=== PATIENT | female | born 1950 | race African-American/Black ===

== ENCOUNTER 2017-02-23 06:50 | Day surgery (SDC) | payer OTHER ==
[~2017-02-23] VITALS: Ht 157.5 cm; Wt 89.2 kg
[~2017-02-23 06:50] MED LIST: AMLO5 PO; ASPI81TA11 PO; CARV3.12 PO; CITA10TA4 PO; CLON.1 PO; COZA100T PO; HYDR12.56 PO; ZOCO40TA PO
[2017-02-23] MEDS ORDERED: NS 1000P @30 MLS/HR (KVO) IV SCH (07:30)
[2017-02-23] MEDS ORDERED: diphenhydrAMINE HCL 50 MG CAP PO SCH (07:30)
[2017-02-23 07:31] VITALS: BP 169/88; PULSE 59; RESP 18; TEMP 98.6; O2SAT 98
[2017-02-23] MEDS ORDERED: GABA100C4 PO (07:33)
[2017-02-23] MEDS ORDERED: LOSA100T PO (07:33)
[2017-02-23] MEDS ORDERED: ASPI-147 PO (07:33)
[2017-02-23] MEDS ORDERED: NITR0.4S SL (07:33)
[2017-02-23] MEDS ORDERED: CLON0.1T PO (07:33)
[2017-02-23] MEDS ORDERED: PRAV10TA PO (07:33)
[2017-02-23] MEDS ORDERED: PLAV75TA29 PO (07:33)
[2017-02-23] MEDS ORDERED: ISOS30TA3 PO (07:33)
[2017-02-23] MEDS ORDERED: CITA10TA4 PO (07:33)
[2017-02-23] MEDS ORDERED: CARV12.52 PO (07:33)
[2017-02-23 07:39] LABS: AUTOMATED NEUTROPHIL # 2.6 TH/MM3 (1.8-7.7); BASOPHIL % 0.7 % (0.0-2.0); EOSINOPHIL # 0.6 TH/MM3 (0-0.4); EOSINOPHIL % 8.6 % (0.0-4.0); HEMATOCRIT 34.9 % (35.0-46.0); HEMO FLAGS DIFF FINAL; LYMPH % 42.8 % (9.0-44.0); LYMPHOCYTE # 2.8 TH/MM3 (1.0-4.8); MEAN CELL VOLUME 90.8 FL (80.0-100.0); MEAN CORPUSCULAR HEMOGLOBIN 31.1 PG (27.0-34.0); MEAN CORPUSCULAR HGB CONC 34.2 % (32.0-36.0); MONO % 8.3 % (0.0-8.0); NEUT % 39.6 % (16.0-70.0); PLATELET COUNT 265 TH/MM3 (150-450); RED BLOOD COUNT 3.85 MIL/MM3 (4.00-5.30); WHITE BLOOD COUNT 6.6 TH/MM3 (4.0-11.0)
[2017-02-23 07:45] LABS: APTT (PATIENT) 26.3 SEC (24.3-30.1); INTERNATIONAL NORMALIZED RATIO 0.9 RATIO; PROTHROMBIN TIME - PATIENT 10.3 SEC (9.8-11.6)
[2017-02-23 07:49] LABS: BICARBONATE 29.1 MEQ/L (21.0-32.0)
[2017-02-23] MEDS ORDERED: HEPARIN-NS/PF INJ 500 ML ONE ×2 (08:27→09:27)
[2017-02-23] MEDS ORDERED: MIDAZOLAM HCL 2 MG/2 ML VIAL ONE (08:27)
[2017-02-23] MEDS ORDERED: HEPARIN SODIUM - IV 10,000 UNITS/10 ML VIAL ONE (09:20)
[2017-02-23] MEDS ORDERED: CLOPIDOGREL 300 MG TAB ONE (09:51)
--- NOTE | 2017-02-23 10:09 | CATHPROC ---
[employer] HIS Report Study Information Study Number Admission Scheduled Start Study Start [id number] Feb 23 2017 6:50AM 02/23/2017 Feb 23 2017 8:21AM [place] Service Cardiac Catheterization Admit Source Facility Department Other [facility] - Canal [facility] Physician and Clinical Staff Initial MD Beltran, [place] [employer]er Taylor Medrano,AGNIESZKA Recorder Jenna Hill,RT(R) (BS) Scrub Sarah ParhamRT(R) Procedures Performed Procedure Location (Site) Vessel Name Coronary Angiograms LCA Left Coronary Coronary Angiograms RCA Right Coronary Drug Eluting Inflatio CIRC Prox CIRC L Heart Cath LV Gram-hand inj. LV LV Ventricle PTCA CIRC Prox CIRC PTCA ADD ON'S Wire insertion Fem Art (right) Femoral Art Equipment Time Welfare Worker Description Size Mfg Part Number Used/Scraped PERCLOSE, PRO GLIDE CLOSER 09:56 [employer] FR 6 11531 *[id number] Used DEVICE [id number] 09:30 [employer] WIRE, IZZY FIELDER XT 190CM 180CM Used *[id number] TRANSDUCER, TRUWAVE [id number] 08:22 NEWBY MEDRANO * Used W/STOCKCOCK *[id number] WIRE, CHOICE PT EX. SUPPORT [id number] 09:27 [employer] 180CM Used 182CM *[id number]- INTRODUCER SET, 08:22 [employer]. FR 5 SC-NT-U-SST Used MICROPUNCTURE, STIFFENED *[id number] [id number] *[id number] 534-521T *[id number] [id number] *[id number] 08:22 Ready Solar INDUSTRIES PACK, CCL CUSTOM * Used *[id number] 09:24 MEDTRONIC BALLOON, 2.5 X 6MM EUPHORA 6MM Used *[id number] 09:43 MEDTRONIC BALLOON, 3.0 X 12MM EUPHORA 12MM Used *[id number] BALLOON, 3.0 X 8MM NC [id number] 09:51 MEDTRONIC 8MM Used EUPHORA *[id number] STENT, 2.75 12 RESOLUTE [id number] 09:49 MEDTRONIC 2.75 12 Used INTEGRITY RX *[id number] STENT, 2.75 14 RESOLUTE [id number] 09:41 MEDTRONIC 2.75 14 Used INTEGRITY RX *[id number] STENT, 2.75 18 RESOLUTE [id number] 09:39 MEDTRONIC 2.75 18 Used INTEGRITY RX *[id number] 09:22 MEDTRONIC/AVE EBU 3.5 Z2 GUIDE CATHETER FR 6 Used *[id number] 09:20 [employer] MEDICAL 30 EVERETT INDEFLATOR Used *[id number] 09:22 [employer] MEDICAL SHEATH, FR6.5 PRELUDE 11CM FR 6.5 038ACT Used *[id number] 08:22 [employer] MEDICAL WIRE, 3MMJ .035 180CM 180CM Used *[id number] 08:22 NAMIC MANIFOLD, 4 PORT * Used *[id number] 08:22 NYCOMED OMNIPAQUE, 350 MG, 150ML 150ML [id number] Used [id number] 08:22 [employer] MEDICAL BLANKET,WARM AIR CCL * Used *[id number] 08:22 TERUMVisiQuate MEDICAL SHEATH, FR5 TERUMO (10CM) FR 5 Used *[id number] WIRE, RUNTHROUGH NS FLOPPY [id number] 09:21 TERUMO MEDICAL 180CM Used .014 180CM *[id number] Equipment Model, Serial, Lot Number and Expiration Data Description Model Number Serial Number Lot Number Expiration Date SHEATH, FR6.5 PRELUDE 11CM [id number] 12-23-2019 STENT, 2.75 12 RESOLUTE [id number] 12-01-2018 INTEGRITY RX WIRE, CHOICE PT EX. SUPPORT [id number] 09-01-2018 182CM History: Current Medications Medication Dosage/Unit Route Frequency Last Date/Time Taken Statins (any) Beta Anne NTG Patch ASA PLAVIX EFFIENT History: Allergies Allergy Reaction Tramadol Hydroxyzine History: Risk Factors Family History of Hypertension Dyslipidemia Previous IN Previous Heart Failure Premature CAD Yes Yes No Yes No Prior Valve Prior PCI Prior PCIDate Prior CABG Surgery No Yes 05/25/2014 No Cerebrovascular Peripheral Artery Chronic Lung On Dialysis Diabetes Disease Disease Disease No No No No No History: Symptoms/Diagnosis Selection Items Chest pain History: Stress Tests Stress or Imaging Studies Performed Yes Standard Exercise Stress Test No Stress Echo No Stress Test SPECT Stress Test SPECT Result Stress Test SPECT Ischemia Risk/Extent Yes Positive Intermediate Stress Test CMR No Cardiac CTA Coronary Calcium Score No No History: Other Current Smoker No Labs Hgb (g/dl) Hct (%) WBC (l/cumm) Platelets (thousands) 11.60-17.00 35.00-51.00 4.00-11.00 150.00-450.00 12.0 34.9 6.6 265 Glucose (mg/dl) BUN (mg/dl) Creatinine (mg/dl) BUN:Creatinine (1:x) 74.00-106.00 7.00-18.00 0.50-1.30 10.00-20.00 94 16 1.1 14.5 Na (meq/l) K (meq/l) 136.00-145.00 3.50-5.10 141 4 INR (PTT:PT) 0.90-1.10 0.9 CPK-MB (ng/ML) 0.50-3.60 Not Drawn Medication Medication Total Dose (Bolus/Oral) Medication Total Dosage/Unit 1% XYLOCAINE 20 mL FENTANYL 50 mcg HEPARIN 5000 units PLAVIX 600 mg VERSED 2 mg Medications (Bolus/Oral) Medication Time Given Dosage/Unit Administered By Reason 1% XYLOCAINE 02/23/2017 9:11:03 AM 20 mL Trevino-Humberto Jasper 20 mL 1% XYLOCAINE given in lab by Jasper Beltran in Right Groin via Subcutaneous. FENTANYL 02/23/2017 9:11:21 AM 50 mcg Taylor Medrano 50 mcg FENTANYL given in lab by Taylor Medrano RN in Left Antecubital via Peripheral IV. VERSED 02/23/2017 9:12:12 AM 2 mg Taylor Medrano 2 mg VERSED given in lab by Taylor Medrano RN in Left Antecubital via Peripheral IV. HEPARIN 02/23/2017 9:21:42 AM 5000 units Taylor Medrano 5000 units HEPARIN given in lab by Taylor Medrano RN in Left Antecubital via Peripheral IV. PLAVIX 02/23/2017 9:59:26 AM 600 mg Taylor Medrano 600 mg PLAVIX given in lab by Taylor Medrano RN via Oral. Medication (Drip) Medication Time Given Dosage/Unit Concentration/Unit Diluent (ml) Solution IV Solutions 02/23/2017 8:22:20 AM 0 mL (IV) 500 NaCl .9 IV Solutions given in lab by Medrano, Taylor, RN in Left Antecubital via Peripheral IV. Pump/Drip F low = 20 ml/hr using NaCl .9. Initial Case Assessment Cardiovascular HR Rhythm NIBP Chest Pain 74 reg 165/86 0 Edema Present Skin color Skin None Normal Warm Dry Circulatory - Right Pulses Dorsalis Pedis Femoral 1 2 Scale (0,1,2,3,4,d) Circulatory - Left Pulses Dorsalis Pedis Femoral 1 2 Scale (0,1,2,3,4,d) Circulatory - Lower Extremities Color Lower Right Color Lower Left Normal Normal Neurological State Oriented to time-place- Alert Moves all extremities person Respiration - General Respiration Rate SpO2 (%) (B/min) 16 98 Chronological Log Time Study Chronological Log 8:21:58 Patient arrived via Bed. 8:21:59 Patient Name, D.O.B, / Armband Verified By R.N. 8:22:00 Consent signed by the physician and the patient and verified by the Canal [facility] staff. 8:22:01 Pre-op and post- op instructions given; patient acknowledges understanding of instructions . 8:22:03 Verbal Stimulation=2 Physical Stimulation=2 Airway=2 Respiration=2 TOTAL=8. (0=absent, 1=l imited, 2=present) 8:22:05 Presedation assessment performed by Canal Boat Operator RN. 8:22:09 Patient has been NPO for More than 6Hrs. 8:22:11 Skin Breakdown none per pt 8:22:14 Patient Warmer Placed on the Table. 8:22:17 Jadyn Prominences Protected 8:22:18 A # 20 IV was noted in the Antecubital (left). Grade = 0 IV Solutions given in lab by Taylor Medrano, RN in Left Antecubital via Peripheral IV. Pump/D rip Flow = 20 ml/hr 8:22:20 using NaCl .9. 8:22:20 History and physical on the chart or being dictated. Assessment: Initial Case, HR=74 BPM, Rhythm=reg, JMDZ=132/86 mmhg, Chest Pain=0, Edema=None, Col or=Normal, Skin = Warm, Dry Right Pulses: Peterson Ped=1, Femoral=2 Left Pulses: Peterson Ped=1, Femoral=2 8:22:23 Lower Right Extremities: Color=Normal Lower Left Extremities: Color=Normal Neurological: State=Alert, Ox3, BUNCH Respiration: Resp=16 B/min, SpO2=98 % Vitals capture started with the following parameters, Patient=Adult, Interval=5 min, Initial Pre emanm=665 mmHg, 8:25:14 Deflation Rate=5 mmHg 8:26:38 HR=64 bpm, WKZF=974/86 mmhg, SpO2=99.0 %, Resp=10 B/min, Pain=0, Risa=10, Vincent=2 8:31:00 HR=58 bpm, RBLU=223/89 mmhg, SpO2=99.0 %, Resp=13 B/min, Pain=0, Risa=10, Vincent=2 8:32:30 Reference ECG taken 8:36:01 HR=58 bpm, XACW=435/90 mmhg, SpO2=98.0 %, Resp=14 B/min, Pain=0, Risa=10, Vincent=2 8:40:34 Bilateral groins prepped with 2% chlorhexidine, and with a 3 min. waiting time. 8:41:02 HR=62 bpm, ZGDD=020/127 mmhg, SpO2=98.0 %, Resp=12 B/min, Pain=0, Risa=10, Vincent=2 8:44:28 MD arrived. 8:46:18 Pressure channel 1 zeroed. 8:46:44 HR=65 bpm, YQQH=858/100 mmhg, SpO2=99.0 %, Resp=15 B/min, Pain=0, Risa=10, Vincent=2 8:51:04 HR=66 bpm, OAKW=432/91 mmhg, SpO2=97.0 %, Resp=15 B/min, Pain=0, Risa=10, Vincent=2 8:56:05 HR=61 bpm, ENMZ=577/92 mmhg, SpO2=97.0 %, Resp=16 B/min, Pain=0, Risa=10, Vincent=2 9:01:04 HR=59 bpm, JALU=325/83 mmhg, SpO2=98.0 %, Resp=17 B/min, Pain=0, Risa=10, Vincent=2 9:06:53 HR=58 bpm, SHIY=625/73 mmhg, SpO2=97.0 %, Resp=15 B/min, Pain=0, Risa=10, Vincent=2 Time Out. Correct patient, correct procedure,correct physician, power injector not loaded with c ontrast with surgical 9:: team present. Time Out Concurred by , individual staff in procedure 9::59 Case Start 9:11:03 20 mL 1% XYLOCAINE given in lab by Jasper Beltran in Right Groin via Subcutaneous. 9:11:21 50 mcg FENTANYL given in lab by Taylor Medrano, RN in Left Antecubital via Peripheral IV. 9:11:37 HR=62 bpm, YPNN=290/90 mmhg, SpO2=97.0 %, Resp=18 B/min, Pain=0, Risa=10, Vincent=2 9::49 Access site was Right Femoral Artery. 9:12:12 2 mg VERSED given in lab by Taylor Medrano, AGNIESZKA in Left Antecubital via Peripheral IV. A INTRODUCER SET, MICROPUNCTURE, STIFFENED FR 5 was advanced into the Fem Art (right) using the ::49 Percutaneous technique. A SHEATH, FR5 TERUMO (10CM) FR 5 was exchanged in the Fem Art (right). This was necessary in ord er to ::59 accomodate a larger catheter. Recorded Pressure: Ao, HR=70, Condition=Condition 1 9:14:02 (Aorta) Ao 150/82/106 9:14:15 An injection in the Fem Art (right) was made through the SHEATH, FR5 TERUMO (10CM) FR 5. A JR 4.0 INFINITI CATHETER FR 5 was advanced over a wire. OMNIPAQUE, 350 MG, 150ML 150ML was use d for 9:14:25 injections. Recorded Pressure: LV, HR=63, Condition=Condition 1 9:15:08 (Left Ventricle) LV 141/6/10 9:15:43 The LV was manually injected with 8 cc's and visualized. OMNIPAQUE, 350 MG, 150ML 150ML used . Recorded Pressure: LV, Ao, HR=62, Condition=Condition 1 9:15:53 (Left Ventricle) LV 132/3/12, (Aorta) Ao 123/74/94 9:16:12 HR=61 bpm, CFMF=407/74 mmhg, SpO2=96.0 %, Resp=12 B/min, Pain=0, Risa=10, Vincent=2 9:16:12 The RCA was injected and visualized at various angles. OMNIPAQUE, 350 MG, 150ML 150ML used. 9:16:50 Catheter was removed A JL 4.0 INFINITI CATHETER FR 5 was advanced over a wire. OMNIPAQUE, 350 MG, 150ML 150ML was use d for 9:16:52 injections. 9:17:48 The LCA was injected and visualized at various angles. OMNIPAQUE, 350 MG, 150ML 150ML used. 9:18:50 Catheter was removed 9:19:06 OMNIPAQUE, 350 MG, 150ML 150ML and 30 EVERETT INDEFLATOR added. A SHEATH, FR6.5 HEATHER FR 6.5 was exchanged in the Fem Art (right). This was necessary in order to accomodate a 9:20:19 larger catheter. 9:20:56 HR=65 bpm, NBAJ=756/77 mmhg, SpO2=99.0 %, Resp=10 B/min, Pain=0, Risa=10, Vincent=2 9:21:42 5000 units HEPARIN given in lab by Taylor Medrano, RN in Left Antecubital via Peripheral IV. A EBU 3.5 Z2 GUIDE CATHETER FR 6 was advanced over a wire. OMNIPAQUE, 350 MG, 150ML 150ML was us ed for 9:21:53 injections. 9:23:05 A WIRE, RUNTHROUGH NS FLOPPY .014 180CM 180CM was inserted via Fem Art (right). 9:25:55 HR=66 bpm, NUPM=979/70 mmhg, GrZ4=582.0 %, Resp=12 B/min, Pain=0, Risa=10, Vincent=2 9:26:51 Wire removed 9:27:30 A WIRE, CHOICE PT EX. SUPPORT 182CM 180CM was inserted via Fem Art (right). 9:31:01 HR=64 bpm, QEMN=763/61 mmhg, SmI0=930.0 %, Resp=12 B/min, Pain=0, Risa=10, Vincent=2 9:31:01 Wire removed 9:31:08 A WIRE, MONICARelify ER XT 190CM 180CM was inserted via Fem Art (right). 9:35:39 Activated Clotting Time Drawn A BALLOON, 2.5 X 6MM EUPHORA 6MM was inserted over WIRE, ASAHI FIELDER XT 190CM 180CM via the Fe m Art 9:35:43 (right). 9:35:58 HR=65 bpm, GASM=734/71 mmhg, BvQ8=239.0 %, Resp=12 B/min, Pain=0, Risa=10, Vincent=2 A BALLOON, 2.5 X 6MM EUPHORA 6MM over a WIRE, ASAHI FIELDER XT 190CM 180CM in the CIRC Prox was inflated 9:36:49 using a 30 EVERETT INDEFLATOR at 8 everett for 10 sec. 9:37:38 Balloon Removed A STENT, 2.75 18 RESOLUTE INTEGRITY RX 2.75 18 was advanced through a EBU 3.5 Z2 GUIDE CATHETER FR 6 over 9:39:51 a WIRE, ASAHI FIELDER XT 190CM 180CM. 9:40:28 Stent not deployed. Stent removed and intact. 9:40:59 HR=66 bpm, LIIM=822/69 mmhg, VvX9=706.0 %, Resp=12 B/min, Pain=0, Risa=10, Vincent=2 A STENT, 2.75 14 RESOLUTE INTEGRITY RX 2.75 14 was advanced through a EBU 3.5 Z2 GUIDE CATHETER FR 6 over 9:41:41 a WIRE, ASAHI FIELDER XT 190CM 180CM. 9:42:28 Stent not deployed. Stent removed and intact. 9:42:57 ACT (Normal Range 90-180) = 356 A BALLOON, 3.0 X 12MM EUPHORA 12MM was inserted over WIRE, ASAHI FIELDER XT 190CM 180CM via the Fem Art 9:43:28 (right). A BALLOON, 3.0 X 12MM EUPHORA 12MM over a WIRE, ASAHI FIELDER XT 190CM 180CM in the CIRC Prox wa s 9:43:45 inflated using a 30 EVERETT INDEFLATOR at 8 everett for 11 sec. A BALLOON, 3.0 X 12MM EUPHORA 12MM over a WIRE, ASAHI FIELDER XT 190CM 180CM in the CIRC Prox wa s 9:44:15 inflated using a 30 EVERETT INDEFLATOR at 10 everett for 13 sec. 9:45:00 Balloon Removed A STENT, 2.75 14 RESOLUTE INTEGRITY RX 2.75 14 was advanced through a EBU 3.5 Z2 GUIDE CATHETER FR 6 over 9:45:23 a WIRE, ASAHI FIELDER XT 190CM 180CM. 9:46:34 HR=74 bpm, UBZP=025/85 mmhg, FkK7=488.0 %, Resp=15 B/min, Pain=0, Risa=10, Vincent=2 9:47:11 Stent not deployed. Stent removed and intact. A STENT, 2.75 12 RESOLUTE INTEGRITY RX 2.75 12 was advanced through a EBU 3.5 Z2 GUIDE CATHETE R FR 6 over 9:48:16 a WIRE, ASAHI FIELDER XT 190CM 180CM. A STENT, 2.75 12 RESOLUTE INTEGRITY RX 2.75 12 was deployed using a 30 EVERETT INDEFLATOR at 16 at [facility]ospheres 9:49:29 for 14 seconds in the CIRC Prox. 9:49:46 Delivery device removed A BALLOON, 3.0 X 8MM NC EUPHORA 8MM was inserted over WIRE, ASAHI FIELDER XT 190CM 180CM via t he Fem Art 9:50:39 (right). 9:51:03 HR=74 bpm, GETX=375/91 mmhg, SpO2=99.0 %, Resp=13 B/min, Pain=0, Risa=10, Vincent=2 A BALLOON, 3.0 X 8MM NC EUPHORA 8MM over a WIRE, ASAHI FIELDER XT 190CM 180CM in the CIRC Prox was 9:51:32 inflated using a 30 EVERETT INDEFLATOR at 12 everett for 19 sec. 9:52:44 Balloon Removed. 9:52:50 Catheter was removed 9:52:54 Wire removed 9:55:05 PERCLOSE, PRO GLIDE CLOSER DEVICE FR 6 placement in the Fem Art (right) 9:55:59 Case End 9:56:04 HR=76 bpm, MYRL=557/93 mmhg, EzN5=396.0 %, Resp=17 B/min, Pain=0, Risa=10, Vincent=2 9:57:23 Catheter(s) removed without difficulty 9:57:30 No case complications noted. 9:57:32 Cine recording checked. 9:57:35 Implantable Device card placed in patient's chart. 9:57:40 Contrast Scanned 9:57:42 A Left Heart Cath was performed. 9:57:54 DOCU called. Spoke to Katiana. 9:59:26 600 mg PLAVIX given in lab by Taylor Medrano RN via Oral. 10:01:05 HR=67 bpm, ZCVN=155/92 mmhg, SpO2=97.0 %, Resp=15 B/min, Pain=0, Risa=10, Vincent=2 10:01:44 Sterile dressing applied to site 10:05:15 Patient moved to stretcher End Study - Contrast Media Used In Study Contrast Total Opened (mL) Total Used (mL) Total Wasted (mL) Omnipaque 75 75 0 End Study - Maximum Contrast Load Max Contrast Load (mL) 405.4 End Study - Radiation Exposure Fluoro Time (minutes) 14.8 End Study - Patient Disposition Complications Transferred To Interventional Outcome No Canal Boat Operator Holding successful
[2017-02-23] MEDS ORDERED: SODIUM CHLOR 0.9% 1000 ML INJ 1,000 ML IV SCH (10:10)
[2017-02-23] MEDS ORDERED: ACETAMINOPHEN 325 MG TAB PO PRN (10:15)
[2017-02-23] MEDS ORDERED: CLOPIDOGREL 300 MG TAB PO ONE (10:15)
[2017-02-23] MEDS ORDERED: ATROPINE SULFATE 1 MG/ML VIAL IV PRN (10:15)
[2017-02-23] MEDS ORDERED: MISC INFORMATION XX ONE (10:15)
[2017-02-23] MEDS ORDERED: ONDANSETRON HCL 4 MG/2 ML VIAL IV PRN (10:15)
[2017-02-23] MEDS ORDERED: PILL SPLITTER OTHER PRN (10:30)
--- NOTE | 2017-02-23 10:32 | MA ---
cc: SARAVANAN GODOY DATE 02/23/2017 DATE OF 1950 PROCEDURE PERFORMED 1. Left heart catheterization 2. Selective right and left coronary angiography. 3. Left ventriculogram 4. Successful PCI to the left circumflex artery. INDICATION Unstable angina. Positive stress test. APPROACH Right transfemoral PROCEDURE DESCRIPTION Consent signed. The patient was taken to the cardiac energy systems laboratory director in a fasting state. The groins were prepped and draped in a sterile fashion. Using 1% lidocaine for local anesthesia and a micropuncture kit, a 5-Syrian sheath was inserted into the right common femoral artery. Right common femoral artery angiography was performed to confirm position of the sheath. Then selective right and left coronary angiography was performed with JR-4 and JL-4 diagnostic catheters. Angiography was taken in multiple views. The JR-4 diagnostic catheter was introduced into the ventricle over a wire followed by left ventriculogram, pressure recordings and pullback. We identified a 99% lesion in the left circumflex artery amendable to interventions, thus we prepared to fix for this. The 5-Syrian sheath was exchanged to this 6-Syrian sheath. Heparin was given for IV anticoagulation. The left main was engaged with a 3.5, 6-Syrian guide. The circumflex vessel was wired with Fielder XT. Then we predilated the lesion with a 2.5 balloon and a 3.0 balloon. This was followed by insertion and deployment of a 2.75 x 12 drug-eluting stent. This stent was postdilated with a noncompliant 3.0 x 12 balloon to high atmospheres. Final angiographic views revealed good stent position and expansion with CATHLEEN-III flow and no residual stenosis. Good stent apposition and expansion. The patient tolerated the procedure well without complications. Estimated blood loss less than 30 cc. Total contrast used 75 cc. The right groin access site was closed with a Perclose device. The patient was loaded with Plavix after procedure. RESULTS LEFT VENTRICLE The left ventricular pressure was 132/3 with an LVEDP of 12, aortic pressure was 123/74 with a mean of 94. There was no gradient upon pullback from the left ventricle to the aorta. The ventricle revealed a symmetrically edilberto ventricle with an estimated ejection fraction of 60%. ANGIOGRAPHIC RESULTS 1. Right coronary artery. The right coronary artery is a dominant vessel giving off the PDA. It has a patent stent in its mid segment with 10% ISR. The PDA is patent with nonobstructive coronary artery disease. 2. Left main. The left main is short and patent. 3. LAD. The LAD is a transapical vessel. It has minimal luminal irregularities but for the most part nonobstructive coronary artery disease. He has four diagonal vessels which are all patent with CATHLEEN-III flow, nonobstructive coronary artery disease. 4. Left circumflex. The left circumflex artery has a 99% concentric lesion in its proximal segment after the first OM branch. The first OM is patent with CATHLEEN-III flow. After the lesion, the patient has CATHLEEN-I flow. CONCLUSION 1. Successful PCI to the left circumflex artery with a drug-eluting stent in the setting of angina and a positive stress test. 2. Preserved LV systolic function. 3. Patent stent in the right coronary artery. RECOMMENDATIONS The patient will go to the [facility] for post cath care. She will continue her aspirin and Plavix, as well as aggressive medical management for secondary prevention of CAD. After bed rest, we will encourage ambulation. If the patient continues to remain stable throughout today, she might be able to be discharged home today. MD KIRSTY Fenton/SLAVA /10:03 AM /10:16 AM TY
[2017-02-23] MEDS ORDERED: IOHEXOL 350 MG/ML 100 ML BTL (for Cath Lab) OTHER ONE (11:47)
--- NOTE | 2017-02-23 11:55 | EKG ---
Date Performed: 02/23/2017 Time Performed: 07:35:22 PTAGE: 66 years EKG: Sinus bradycardia. Poor R wave progression - probable normal variant Borderline ECG PREVIOUS TRACING : 03/24/2016 22.04 DOCTOR: Sebas Kaiser Interpretating Date/Time 02/23/2017 11:54:13
[2017-02-23] MEDS ORDERED: ATORVASTATIN 10 MG TAB PO SCH (21:00)
[2017-02-23] MEDS ORDERED: METOPROLOL TARTRATE 25 MG TAB PO SCH (21:00)
[2017-02-24] MEDS ORDERED: ASPIRIN 81 MG CHEW TAB PO SCH (09:00)
[2017-02-24] MEDS ORDERED: LISINOPRIL 5 MG TAB PO SCH (09:00)
[2017-02-24] MEDS ORDERED: CLOPIDOGREL 75 MG TAB PO SCH (09:00)
== END 2017-02-23 14:23 | disposition home or self-care (01) ==
LOC: HDIC 06:50 → HDOC 06:50
PROVIDERS: ATTEND Radiology Vascular & Interventional Radiology
DX: I25.119 Atherosclerotic heart disease of native coronary artery with unspecified angina pectoris (principal); I12.9 Hypertensive chronic kidney disease with stage 1 through stage 4 chronic kidney disease, or unspecified chronic kidney disease; N18.2 Chronic kidney disease, stage 2 (mild); E78.5 Hyperlipidemia, unspecified; R00.1 Bradycardia, unspecified; R07.9 Chest pain, unspecified; E66.9 Obesity, unspecified; R94.31 Abnormal electrocardiogram [ECG] [EKG]; Z01.818 Encounter for other preprocedural examination; Z95.5 Presence of coronary angioplasty implant and graft
CPT/HCPCS: 80048; 85002; 85025; 85610; 85730; 92928; 93005; 93458; C1725; C1760; C1769; C1874; C1887; C1893; G0269; J1644; J2250; J3010; Q0163; Q9967